=== PATIENT | male | born 1960 | race Caucasian/White ===

== ENCOUNTER 2019-02-21 18:41 | Emergency (ER) | payer SELFPAY ==
[~2019-02-21] VITALS: Ht 177.8 cm; Wt 68.0 kg
--- NOTE | 2019-02-21 19:30 | NUR ---
ED Nurse Note: Wound closed utilising dermabond as prescribed [id number] exp 02/24/2020 wound edges well approximated. Wound care advicce provided.
[2019-02-21 19:33] VITALS: BP 135/97
[2019-02-21 19:45] VITALS: BP 126/74
--- NOTE | 2019-02-21 19:45 | NUR ---
ER DISCHARGE NOTE: Patient is cleared to be discharged per ERMD, pt is aox4, on room air, with stable vital signs. pt was given dc instructions, pt was able to verbalize understanding, pt id band removed. pt is able to ambulate with steady gait. pt took all belongings. Wound care advice given following wound closure with dermabond
--- NOTE | 2019-02-21 19:50 | NUR ---
ED Nurse Note: Dermabond applied as per prescription. Wound well approximated.
--- NOTE | 2019-02-21 19:59 | Emergency Room Report ---
History of Present Illness General Chief Complaint: Laceration Source: Patient Present Illness HPI 58-year-old male with no significant past medical history complaining of pain status post head injury 1.5 hours ago. A wooden door fell onto the patient's forehead. Denies LOC, headache, dizziness , vomiting, vision change, numbness, weakness. Tetanus vaccine was 2 years ago. Patient not on blood thinner. Allergies: Coded Allergies: No Known Allergies (Unverified , 02/21/19) Patient History Past Medical History: none Past Surgical History: none Social History: Denies: smoking, alcohol use, drug use Immunizations: UTD Review of Systems All Other Systems: negative except mentioned in HPI Physical Exam Vital Signs Date Time Temp Pulse Resp B/P (MAP) Pulse Ox O2 Delivery O2 Flow Rate FiO2 02/21/19 19:15 97.9 62 16 139/95 (110) 95 Room Air Sp02 EP Interpretation: reviewed General Appearance: no apparent distress, alert, GCS 15, non-toxic Head: normocephalic ENT: hearing grossly normal, normal pharynx, normal voice Respiratory: chest non-tender, lungs clear, normal breath sounds, speaking full sentences Cardiovascular #1: regular rate, rhythm, no edema Neurologic: alert, oriented x3, responsive, motor strength/tone normal, sensory intact, speech normal Skin: laceration - 2.5 cm linear laceration at the top of the forehead, edges well approximated, no active bleeding. Procedures Laceration/Wound Repair Laceration/Wound Repair : Consent: Verbal Wound Location: face Wound's Depth, Shape: linear Wound Explored: no foreign body removed Wound Repaired With: Dermabond Patient Tolerated: Well Complications: None Medical Decision Making PA Attestation This patient was seen under the direct supervision of Dr. Guidry, who directed all aspects of care and diagnostic interpretation. Diagnostic Impression: Primary Impression: Laceration of forehead, complicated Qualified Codes: S01.81XA - Laceration without foreign body of other part of head, initial encounter ER Course ED course HPI: 58-year-old male with no significant past medical history complaining of pain status post head injury 1.5 hours ago. A wooden door fell onto the patient's forehead. Denies LOC, headache, dizziness , vomiting, vision change, numbness, weakness. Tetanus vaccine was 2 years ago. Patient not on blood thinner. HPI & PE consistent with: Forehead laceration Orders/ Interventions: Wound care performed. Laceration repaired with Dermabond. 3 layers applied allowing each layer to dry in between application. Pt has no focal neural, arm drift, facial droop, unilateral weakness or numbness , slurred speech, vision impair, therefore acute intracranial emergency is unlikely. head CT not indicated. Disposition: Wound care instruction given to patient. Keep area clean and dry. Do not apply ointments to affected area. Allow Dermabond to fall off on its own. At this time pt. is stable for d/c to home. Will provide printed patient care instructions, and any necessary prescriptions. Care plan and follow up instructions have been discussed with the patient prior to discharge. Please note that this Emergency Department Report was dictated using [employer] policy technology software, occasionally this can lead to erroneous entry secondary to interpretation by the dictation equipment. Last Vital Signs Date Time Temp Pulse Resp B/P (MAP) Pulse Ox O2 Delivery O2 Flow Rate FiO2 02/21/19 19:33 97.8 66 16 135/97 95 Room Air Status: unchanged Disposition: HOME, SELF-CARE Condition: Improved Patient Instructions: Laceration Care, Adult Additional Instructions: Allow Dermabond to fall off on its own. Follow-up with PCP in 3-5 days or return to ER if worsening symptoms, new symptoms or sudden change in condition Arjun Lazaro Feb 21, 2019 19:59
== END 2019-02-21 19:45 | disposition home or self-care (01) ==
LOC: EMR 19:32
DX: S01.81XA Laceration without foreign body of other part of head, initial encounter (principal); W20.8XXA Other cause of strike by thrown, projected or falling object, initial encounter; Y92.9 Unspecified place or not applicable
CPT/HCPCS: 99283